=== PATIENT | male | born 1995 | race Caucasian/White ===

== ENCOUNTER 2018-07-25 14:10 | Emergency (ER) | payer MEDICAID, OTHER ==
[~2018-07-25] VITALS: Ht 170.2 cm; Wt 88.2 kg
[2018-07-25 14:33] VITALS: BP 141/85
--- NOTE | 2018-07-25 16:07 | NUR ---
PATIENT AMBULATED TO BED 2
--- NOTE | 2018-07-25 16:25 | NUR ---
PT BIB SELF TO THE ED WITH THE CHIEF C/O LOWERT BACK PAIN SINCE FRIDAY AFTER WORK. DENIES ANY FALL. DENIES ANY BURNING OR FREQUENCY OF URINATION. DENIES ANY SURGERY. STATES LOWER BACK PAIN OF 7/10 AT THIS TIME. DENIES ANY OTHER PROBLEMS AT THIS TIME. ER AWARE.
--- NOTE | 2018-07-25 17:40 | NUR ---
Patient discharged with v/s stable. Written and verbal after care instructions given and explained. Patient alert, oriented and verbalized understanding of instructions. Ambulatory with steady gait. All questions addressed prior to discharge. ID band removed. Patient advised to follow up with PMD. Rx of NAPROSYN given. Patient educated on indication of medication including possible reaction and side effects. Opportunity to ask questions provided and answered. Discharge instruction was given by Dr Langley.
[2018-07-25 17:58] VITALS: BP 137/77
== END 2018-07-25 17:50 | disposition home or self-care (01) ==
LOC: MED 14:10
DX: M54.9 Dorsalgia, unspecified (principal)
CPT/HCPCS: 99283

== ENCOUNTER 2020-02-18 14:25 | Emergency (ER) | payer MEDICAID, OTHER ==
[~2020-02-18] VITALS: Ht 170.2 cm; Wt 81.6 kg
--- NOTE | 2020-02-18 14:30 | NUR ---
Patient ambulated to bed 3. RN evaluating patient at bedside.
[2020-02-18 14:32] VITALS: BP 151/86
--- NOTE | 2020-02-18 15:10 | NUR ---
24 YEAR OLD MALE COMPLAINS OF COUHG X 3 DAYS. PT AOX4, BREATHING EVEN AND UNLABORED, SPO2 97%, RR 20, SKIN WARM AND DRY. BEDIN LOWEST POSITIION, LOCKED, BED RAIL UPX1. PMH - DENIES ALLERGIES - NKA
--- NOTE | 2020-02-18 15:15 | NUR ---
Patient discharged with v/s stable. Written and verbal after care instructions about COVID 19 given and explained. Patient alert, oriented and verbalized understanding of instructions. Ambulatory with steady gait. All questions addressed prior to discharge. ID band removed. Patient advised to follow up with PMD. Rx of codeine phosphate, ibuprofen, zyrtec given. Patient educated on indication of medication including possible reaction and side effects. Opportunity to ask questions provided and answered.
--- NOTE | 2020-02-18 15:15 | NUR ---
COVID SWAB SENT TO LAB
--- NOTE | 2020-02-21 11:30 | NUR ---
Negative covid results received from lab.
== END 2020-02-18 15:15 | disposition home or self-care (01) ==
LOC: MED 14:25
DX: R05 Cough (principal); R09.81 Nasal congestion; Z20.828 Contact with and (suspected) exposure to other viral communicable diseases
CPT/HCPCS: 99283; U0003

== ENCOUNTER 2020-11-30 12:01 | Emergency (ER) | payer SELFPAY ==
[~2020-11-30] VITALS: Ht 167.6 cm; Wt 93.0 kg
[2020-11-30 12:22] VITALS: BP 145/97
--- NOTE | 2020-11-30 12:22 | NUR ---
PT AMBULATED TO BED 8.
--- NOTE | 2020-11-30 12:25 | NUR ---
25 Y/O MALE C/O 6 LOWER ABDOMINAL PAIN XYESTERDAY. +NAUSEA, SUBJECTIVE FEVER, CHILLS, LACK OF APPETITE AND CONSTIPATION. DENIES VOMITING. DENIES EXPOSURE TO COVID. PT TOOK TWO ADVIL WITH MINIMAL RELIEF. PT DENIES DYSURIA. PT A/O X4 WITH EVEN AND UNLABORED RESPIRATIONS. PMH:DENIES NKDA
--- NOTE | 2020-11-30 12:31 | NUR ---
PT AMBULATED TO RESTROOM FOR URINE SAMPLE
--- NOTE | 2020-11-30 12:48 | NUR ---
DR SMITH AT BEDSIDE EVALUATING PT
--- NOTE | 2020-11-30 13:16 | NUR ---
PT TAKEN TO RAD VIA W/C
--- NOTE | 2020-11-30 13:28 | NUR ---
PT BACK FROM RAD
[2020-11-30] MEDS ORDERED: MIRABULK PO (14:08)
[2020-11-30] MEDS ORDERED: ONDA-24 PO (14:08)
[2020-11-30 14:35] VITALS: BP 148/95
--- NOTE | 2020-11-30 14:35 | NUR ---
Patient discharged with v/s stable. Written and verbal after care instructions given and explained. Patient alert, oriented and verbalized understanding of instructions. Ambulatory with steady gait. All questions addressed prior to discharge. ID band removed. Patient advised to follow up with PMD. Rx of Miralox and Ondansetron given. Patient educated on indication of medication including possible reaction and side effects. Opportunity to ask questions provided and answered.
[2020-11-30 14:37] LABS: APPEARANCE,URINE CLEAR (CLEAR); BILIRUBIN,URINE 1+ (NEGATIVE); BLOOD, URINE TRACE-I (NEGATIVE); LEUKOCYTE ESTERASE ,URINE NEGATIVE (NEGATIVE); NITRITE, URINE NEGATIVE (NEGATIVE); PH,URINE 6.5 (5.0-9.0); UGLUCOSE 1+ (NEGATIVE)
[2020-11-30 14:45] LABS: COLOR,URINE AMBER (YELLOW)
[2020-11-30 15:39] LABS: RBC,URINE 0-5 /HPF (0-5); WBC,URINE 0-5 /HPF (0-5)
== END 2020-11-30 14:35 | disposition home or self-care (01) ==
LOC: MED 12:01
DX: R10.30 Lower abdominal pain, unspecified (principal)
CPT/HCPCS: 74021; 81001; 99284

== ENCOUNTER 2023-08-05 03:45 | Emergency (ER) | payer MEDICAID, OTHER ==
[~2023-08-05] VITALS: Ht 167.6 cm; Wt 98.9 kg
[~2023-08-05 03:45] MED LIST: MIRABULK PO; ONDA-188 PO
[2023-08-05 04:01] VITALS: BP 145/103; PULSE 84; RESP 16; TEMP 98.6; O2SAT 97
[2023-08-05 04:26] LABS: APPEARANCE,URINE CLEAR (CLEAR); BILIRUBIN,URINE NEGATIVE (NEGATIVE); BLOOD, URINE TRACE-I (NEGATIVE); COLOR,URINE YELLOW (YELLOW); LEUKOCYTE ESTERASE ,URINE NEGATIVE (NEGATIVE); NITRITE, URINE NEGATIVE (NEGATIVE); PROTEIN,URINE NEGATIVE (NEGATIVE); UGLUCOSE 1+ (NEGATIVE); UROBILINOGEN,URINE 0.2 EU/dL (0.2 - 1)
[2023-08-05 04:36] LABS: BACTERIA,URINE FEW /HPF (None Seen); RBC,URINE 0-5 /HPF (0-5); WBC,URINE 0-5 /HPF (0-5)
[2023-08-05 04:37] LABS: MUCUS,URINE None Seen /LPF (None Seen); SQUAMOUS EPITHELIAL CELL,UR 0-3 (FEW) /LPF (0-3 (FEW))
[2023-08-05] MEDS: DICYCLOMINE 10 MG CAP PO ONE (05:02)
[2023-08-05] MEDS: ACETAMINOPHEN EXTRA STRENGTH 500 MG TAB PO ONE (05:03)
[2023-08-05] MEDS: ONDANSETRON 4 MG ODT PO ONE (05:03)
[2023-08-05] MEDS ORDERED: ONDA-188 PO (05:43)
[2023-08-05] MEDS: MORPHINE SULFATE 4 MG/ML SYR IVP ONE (05:59)
[2023-08-05 06:02] VITALS: BP 145/103; PULSE 84; RESP 16; TEMP 98.6; O2SAT 97
== END 2023-08-05 06:00 | disposition home or self-care (01) ==
LOC: MED 03:45
DX: R11.2 Nausea with vomiting, unspecified (principal); R19.7 Diarrhea, unspecified; R10.30 Lower abdominal pain, unspecified; R03.0 Elevated blood-pressure reading, without diagnosis of hypertension
CPT/HCPCS: 81001; 96374; 99284; J2270; Q0162